=== PATIENT | female | born 1945 | race Caucasian/White ===

== ENCOUNTER 2019-03-20 07:30 | Inpatient (IN) ==
[2019-03-16 14:09] LABS: Appearance,Urine CLEAR; Bacteria,Urine FEW /hpf (0); Bilirubin,Urine NEG (NEG); Color,Urine YELLOW; Culture Indicated,Urine NO; Glucose,Urine (UA) NORM (NEG); Ketones,Urine NEG (NEG); Leukocyte Esterase,Urine TRACE /uL (NEG); Mucus,Urine FEW /hpf (0); Nitrate,Urine NEG (NEG); Protein,Urine NEG (NEG); Specific Gravity,Urine 1.025 (1.000-1.035); Urine Blood NEG ery/mcL (<5); Urine Hyaline Cast 1 /lpf (0-2); Urine RBC 2 /hpf (0-1); Urine Squamous Epithelial Cell 6 /hpf (0-4); Urine WBC 3 /hpf (0-4)
[2019-03-16 14:18] LABS: Basophils # (Auto) 0 K/mcL (0.0-0.3); Basophils % (Auto) 0.4 % (0.0-2.0); Eosinophils # (Auto) 0.3 K/mcL (0.0-0.7); Eosinophils % (Auto) 4.1 % (0.0-7.0); Hematocrit 43.6 % (36.0-48.0); Hemoglobin 13.6 g/dL (12.0-15.0); Lymphocytes # (Auto) 1.6 K/mcL (1.5-4.8); Lymphocytes % (Auto) 23.8 % (15.5-49.0); Mean Corpuscular HGB Conc 31.3 g/dL (31.0-36.0); Mean Platelet Volume 9.8 fL (7.4-10.4); Monocytes # (Auto) 0.6 K/mcL (0.1-0.9); Monocytes % (Auto) 8.7 % (1.0-12.0); Platelet Count 220 K/mcL (140-440); RBC 5.02 M/mcL (4.00-5.20); Red Cell Distribution Width 14.3 % (11.5-14.5); WBC 6.8 K/mcL (4.5-11.0)
[2019-03-16 14:43] LABS: Prothrombin Time 13.6 sec (11.9-14.5)
[2019-03-16 14:53] LABS: Blood Urea Nitrogen 16 mg/dl (8-23); Calcium 9.8 mg/dl (8.6-10.4); Carbon Dioxide 24 mmol/L (22-30); Chloride 102 mmol/L (96-108); Glomerular Filtration Rate 63; Glucose 103 mg/dL (70-105)
[2019-03-17 20:07] LABS: Estimated Average Glucose(eAG) 163 mg/dL; Hemoglobin A1C 7.3 % HGB (4.0-6.0)
[~2019-03-20 07:30] MED LIST: 0.9 % SODIUM CHLORIDE 9 ML, KETOROLAC 30 MG, ROPIVACAINE HCL/PF 49.5 ML, EPINEPHrine 0.... IJ SCH; ACETAMINOPHEN 500 MG TABLET PO SCH; CELECOXIB 200 MG CAPSULE PO SCH; PREGABALIN 75 MG CAPSULE PO SCH; ceFAZolin 2 GM in DEXTROSE 5% IN WATER 50 ML IV SCH; oxyCODONE 10 MG TAB.ER.12H PO SCH
[2019-03-20] MEDS ORDERED: SCOPOLAMINE 1 PATCH PATCH TOPICAL PRN (09:00)
[2019-03-20] MEDS ORDERED: IPRATROPIUM/ALBUTEROL 3 ML AMPUL.NEB NEB PRN (09:00)
[2019-03-20] MEDS ORDERED: MIDAZOLAM 2 MG/2 ML VIAL IV ONE (12:30)
[2019-03-20] MEDS ORDERED: ePHEDrine 50 MG/ML AMPUL IV ONE (12:30)
[2019-03-20] MEDS ORDERED: PROPOFOL 200 MG/20 ML VIAL IV ONE (12:30)
[2019-03-20] MEDS ORDERED: TRANEXAMIC ACID 1,000 MG/10 ML VIAL IV ONE (12:30)
[2019-03-20] MEDS ORDERED: LIDOCAINE HCL/PF 100 MG/5 ML SYRINGE IV ONE (12:30)
[2019-03-20] MEDS ORDERED: DEXAMETHASONE 10 MG/ML VIAL IV ONE (12:30)
[2019-03-20] MEDS ORDERED: SUCCINYLCHOLINE 20 MG/ML ML IV ONE (12:30)
[2019-03-20] MEDS ORDERED: ROPIVACAINE HCL/PF 20 ML VIAL IJ ONE (12:30)
[2019-03-20] MEDS ORDERED: fentaNYL 100 MCG/2 ML VIAL IV ONE (12:30)
[2019-03-20] MEDS ORDERED: KETAMINE 100 MG/ML ML IV ONE (12:30)
[2019-03-20] MEDS ORDERED: ONDANSETRON 4 MG/2 ML VIAL IV ONE (12:30)
[2019-03-20] MEDS ORDERED: GENTAMICIN SULFATE 800 MG/20 ML VIAL IR ONE (12:59)
[2019-03-20] MEDS ORDERED: BENZOCAINE/MENTHOL 1 LOZENGE PO PRN (13:52)
[2019-03-20] MEDS ORDERED: HYDROmorphone 2 MG/ML VIAL IV PRN (13:52)
[2019-03-20] MEDS ORDERED: MAGNESIUM HYDROXIDE 30 ML ORAL.SUSP PO PRN (13:52)
[2019-03-20] MEDS ORDERED: POLYETHYLENE GLYCOL 3350 17 GM PACKET PO PRN (13:52)
[2019-03-20] MEDS ORDERED: TRANEXAMIC ACID 1,000 MG/10 ML VIAL IV SCH (13:52)
[2019-03-20] MEDS ORDERED: ACETAMINOPHEN 325 MG TABLET PO PRN (13:52)
[2019-03-20] MEDS ORDERED: ONDANSETRON 4 MG/2 ML VIAL IV PRN (13:52)
[2019-03-20] MEDS ORDERED: BISACODYL 10 MG SUPP.RECT PR PRN (13:52)
[2019-03-20] MEDS ORDERED: FLEETS ADULT ENEMA PR PRN (13:52)
[2019-03-20] MEDS ORDERED: oxyCODONE/APAP 5/325MG TABLET PO PRN (13:52)
--- NOTE | 2019-03-20 13:52 | Brief Operative Note ---
Date of procedure: 03/20/19 Pre-op diagnosis: Left knee djd severe Post-op diagnosis: same Procedure: left knee tka with guides Grafts/Implants: Yes Anesthesia: KALLIA Surgeon: Boogie Guzman Coil Tester: Oscar Hsu Estimated blood loss (cc): 100 Tourniquet Time (Minutes): 45 Specimens Removed/Pathology: none sent Condition: stable Disposition: PACU
--- NOTE | 2019-03-20 14:51 | XRay Report ---
CLINICAL INFORMATION: Left knee replacement TECHNIQUE: AP and crosstable lateral left knee COMPARISON: None. FINDINGS: Status post left total knee arthroplasty. Femoral and tibial components are in anatomic positions. There is postsurgical soft tissue and intra-articular gas. IMPRESSION: Status post left total knee arthroplasty Interpreted and Authenticated by: Donnell Jacobson 03/20/19
[2019-03-20] MEDS: 0.45 % SODIUM CHLORIDE 1,000 ML IV SCH (15:18)
[2019-03-20] MEDS: 0.9 % SODIUM CHLORIDE 10 ML SYRINGE IV SCH ×2 (15:19→20:20)
[2019-03-20] MEDS: KETOROLAC 15 MG/ML VIAL IV SCH (17:00)
[2019-03-20] MEDS: DOCUSATE SODIUM 100 MG CAPSULE PO SCH (20:20)
[2019-03-20] MEDS: ASPIRIN 325 MG ENTERIC COATED TABLET PO SCH (20:20)
[2019-03-20] MEDS: ceFAZolin 1 GM VIAL IV SCH (20:25)
[2019-03-20] MEDS ORDERED: BISOPROLOL 5 MG TABLET PO SCH (21:00)
[2019-03-20] MEDS ORDERED: LOSARTAN 50 MG TABLET PO SCH (21:00)
[2019-03-20] MEDS ORDERED: TEMAZEPAM 15 MG CAPSULE PO PRN (21:00)
[2019-03-20] MEDS ORDERED: SENNOSIDES 1 TABLET PO SCH (21:00)
[2019-03-20] MEDS ORDERED: ATORVASTATIN 20 MG TABLET PO SCH (21:00)
[2019-03-21] MEDS: KETOROLAC 15 MG/ML VIAL IV SCH ×3 (00:04→12:15)
[2019-03-21] MEDS: 0.45 % SODIUM CHLORIDE 1,000 ML IV SCH ×2 (03:05→10:00)
[2019-03-21] MEDS: ceFAZolin 1 GM VIAL IV SCH (04:24)
[2019-03-21] MEDS: 0.9 % SODIUM CHLORIDE 10 ML SYRINGE IV SCH (05:37)
--- NOTE | 2019-03-21 07:39 | Orthopedic Progress Note ---
Subjective Patient information: Note initiated : 03/21/19 at 7:38 am Service Date, if different from initiated Date: [] Patient: Overall,Arely velarde 73 y/o F admitted on 03/20/19 for Left Total Knee Arthroplasty. Chief Complaint: [Pt is stable this morning on post operative day 1 without any significant concerns or complaints. Patients vital signs have remained stable. Patients dressing is dry and is grossly intact from a neurovascular and motor standpoint. Patients 10 point ROS is otherwise negative. ] Objective Vital signs: Vital Signs Temp Pulse Resp BP BP BP Pulse Ox 03/21/19 07:01 96.6 F L 56 L 16 102/58 93 03/21/19 03:14 97.0 F 59 L 16 100/54 93 03/20/19 23:38 97.6 F 74 14 102/57 91 03/20/19 21:03 96 03/20/19 20:54 65 03/20/19 18:57 96.9 F L 75 12 122/74 93 03/20/19 18:09 96.6 F L 65 16 133/76 94 03/20/19 17:57 67 03/20/19 17:52 93 03/20/19 17:05 96.3 F L 63 18 141/80 93 03/20/19 16:26 96.3 F L 67 18 149/70 93 03/20/19 15:36 96.2 F L 64 18 136/67 03/20/19 15:20 96.2 F L 69 18 146/76 93 03/20/19 15:00 96.3 F L 67 18 149/70 93 03/20/19 14:58 96.9 F L 65 15 136/66 93 03/20/19 14:43 97.0 F 70 15 137/67 98 03/20/19 14:28 97.3 F 69 12 106/49 98 03/20/19 14:23 77 14 129/51 96 03/20/19 14:18 71 15 124/50 96 03/20/19 14:13 97.4 F 74 15 135/53 95 03/20/19 09:00 97.6 F 57 L 18 125/68 95 Intake and Output 03/20/19 03/21/19 03/21/19 21:59 05:59 13:59 Intake Total 1240 500 Output Total 30 250 550 Balance 1210 250 -550 Intake: Oral 340 500 Other 900 Output: Void Amount 250 550 Estimated Blood Loss 30 Other: Meal Dinner Percent of Meal Consumed 50% Feeding Ability Independent Urine Appearance Clear Clear Urine Color Light Domi Light Domi Weight 239 lb 8 oz Intake & Output: Intake & Output 03/20/19 03/21/19 03/21/19 21:59 05:59 13:59 Intake Total 1240 500 Output Total 30 250 550 Balance 1210 250 -550 Weight 239 lb 8 oz Intake: Oral 340 500 Other 900 Output: Void Amount 250 550 Estimated Blood Loss 30 Other: Meal Dinner Percent of Meal Consumed 50% Feeding Ability Independent Urine Appearance Clear Clear Urine Color Light Domi Light Domi Incision: Yes healing Incision clean and dry: Yes Dressing: Yes clean Weight bearing status: full Neurological exam IM: Yes motor sensory intact, Yes neurovascular intact Extremities exam IM: Yes Foot pink and warm, Yes neurovascular intact - Labs CBC & BMP: 03/21/19 04:38 03/16/19 11:42 Labs: Orthopedic Labs 03/16/19 11:41 PT 13.6 INR 1.0 APTT 36 03/21/19 03/16/19 04:38 11:41 Hgb 13.6 Hct 36.1 43.6 Assessment and Plan (1) Hx of total knee arthroplasty The patient has been educated regarding dressing care, Physical Therapy recommendations, home exercises, restrictions, and follow up appointments. The patient has had all necessary DME prescribed. The patient has remained relatively stable during their hospital course. Leave Dermabond patch intact until followup Status: Acute
--- NOTE | 2019-03-21 07:41 | Discharge Summary ---
Ortho Discharge - TKA - Patient Instructions Diet: Regular Diet Activity: activity as tolerated, weight bearing as tolerated Total Knee Protocol: For Total Knee: Start ROM STACEY with stationary bike or rocking chair. Work on gaining full extension of knee. Posterior dislocation precautions provided. Hip abductor strengthening and gait training instructions provided. Apply Cryocuff as instructed. Dressing Care: May shower in 2 days - Problem Maintenance (1) Hx of total knee arthroplasty Status: Acute - Follow Up Plan Follow Up Appointments: Oscar Hsu PA-C [Physician Tank Crewmember] - 04/04/19 10:00 am Disposition: Home, Self-Care Prognosis: Good Rehab Potential: Good I certify that the patient requires SNF services: No Overall status at discharge: patient is progressing back to baseline - Orders For Discharge Prescriptions: Aspirin [Ecotrin] 325 mg PO BID #60 tab.ec Docusate Sodium [Colace] 100 mg PO BID #60 cap oxyCODONE/APAP [Percocet 5-325 mg] 1 - 2 tab PO Q4HP PRN #75 tab PRN Reason: Pain Level 3-6
[2019-03-21] MEDS ORDERED: metFORMIN 500 MG TAB.XL.24H PO SCH (08:00)
[2019-03-21] MEDS: ASPIRIN 325 MG ENTERIC COATED TABLET PO SCH (08:15)
[2019-03-21] MEDS: DOCUSATE SODIUM 100 MG CAPSULE PO SCH (08:16)
[2019-03-21] MEDS ORDERED: NON FORMULARY MEDICATION 1 DOSE MISCELL (Aspirin [Lo-Dose Aspirin Ec] 81 MG) PO SCH (09:00)
--- NOTE | 2019-03-21 10:06 | Operative Note ---
DATE OF OPERATION: 03/20/2019 PREOPERATIVE DIAGNOSIS: Left knee degenerative arthritis, severe. POSTOPERATIVE DIAGNOSIS: Left knee degenerative arthritis, severe. PROCEDURE: Left knee total knee arthroplasty with Mckeon and Nephew guides. IMPLANTS: Per nurse's note. ANESTHESIA: General endotracheal anesthesia. SURGEON: Boogie Guzman MD AUTO MOTOR MECHANIC: Oscar Hsu PA-C. This provider's expertise and technical skill were required throughout the case. The PA assisted with preoperative coordination, intraoperative retraction, wound closure, dressing and splint application, as well as postoperative documentation and care coordination. BLOOD LOSS: 100 mL TOTAL TOURNIQUET TIME: 45 minutes. SPECIMENS: None. CONDITION: Stable. DISPOSITION: To PACU. INDICATIONS: This is a very pleasant female who had had preoperative clearance and because of her allergies to metal, we had decided on the Mckeon and Nephew implant using preprogram guides. Using MRI technology, we were able to pre-size and determine position best for the patient. DESCRIPTION OF PROCEDURE: A timeout was performed to confirm the operative site. Ioban was placed over the skin. We made a midline incision and mid vastus approach. With this, we were able to use the guides on the femur to make our femoral cut. The guide was placed and pinned into place and we made our bony cuts. The 5 in 1 cutting jig was then inserted and then we made the remaining bone in cuts. On the tibia we made a bony cut after removing the remnants of the meniscus and then placing the guide with pins. We made our tibial cut perfectly. We irrigated thoroughly and then removed the bony fragment preserving the posterior cruciate ligament. The patient's ACL had been completely removed from prior trauma. With this, we irrigated thoroughly and were able to place the trialed components, preplanned. This seemed to give a perfect alignment in all. The tibial baseplate was titanium. A polyethylene insert was used and an Oxinium femoral component. The patella was resurfaced with surface with highly cross-linked polyethylene 32 mm in diameter. This was an oval configuration to match her anatomy. After all had been inserted, we trialed the knee. This fit very nicely. We then cemented into place the above-mentioned [place] components with titanium and Oxinium implants. It fit perfectly and an 11 mm insert was used with a deep dish design to stabilize the knee and large spurs and loose bodies had been removed posteriorly from the posterior aspect to achieve full extension and to get multiple loose bodies from the anterior compartment. We irrigated thoroughly and these components were cemented into place. We then closed the mid vastus approach with #1 Stratafix. The tourniquet had been deflated and there was no significant bleeding. We then closed the mid vastus approach with #1 Stratafix x2 sutures. We closed the skin with 2-0 Vicryl and adhesive closure. The patient tolerated this well. Sterile bandage was applied. Tourniquet time was approximately 55 minutes. Blood loss about 100 mL. RBH:cherry Job ID: [id number] Doc ID: [id number] Boogie Guzman MD
== END 2019-03-21 12:40 | disposition home or self-care (01) | DRG 470 ==
LOC: SUR 08:53 → MEDSUR 08:53 → INTOOBSV 08:53 → MEDSUR 10:38 → EDSTATUS 12:30
PROVIDERS: ADMIT Orthopaedic Surgery; ATTEND Orthopaedic Surgery